=== PATIENT | female | born 1985 | race Caucasian/White ===

== ENCOUNTER 2017-01-31 17:09 | Inpatient (IN) | payer OTHER ==
[~2017-01-31] VITALS: Ht 175.3 cm; Wt 118.2 kg
--- NOTE | 2017-01-31 19:23 | PD ---
HPI Chief Complaint decreased FM Travel History International Travel<30 Days: No Contact w/Intl Traveler<30Days: No Known Affected Area: No History of Present Illness HPI 31-year-old , IUP at 40.5 care complicated by obesity, history of asthma with the last episode 1 year ago Patient presents reporting decreased movement over the past 1-2 days. She reports that the baby has still been moving but it has been less than normal. There were no aggravating or alleviating factors and no attempted treatments. She reports some mild and irregular contractions. She reports that she is feeling the contractions but she did not come because of contractions or pain, just came for the evaluation of movement. She denies any leaking of fluid or vaginal bleeding. Weeks Gestation: 40 Para: 0 : 1 History Past Medical History Narrative Medical Obesity History of asthma with the last episode a year ago Obstetric History Obstetric History Past Surgical History Narrative Surgical Left ankle surgery Family History Narrative Family History Lupus Social History Alcohol Use: No Tobacco Use: No Substance Abuse: No Allergies-Medications (Allergen,Severity, Reaction): Coded Allergies: JEAN CARLOS Inhibitors (Verified Allergy, Unknown, 01/31/17) angioedema Review of Systems Except as stated in HPI: all other systems reviewed are Neg Physical Exam Narrative GENERAL: Well-nourished, well-developed patient. SKIN: Warm and dry. HEAD: Normocephalic and atraumatic. EYES: No scleral icterus. No injection or drainage. ENT: No nasal drainage noted. Mucous membranes pink. Airway patent. NECK: Supple, trachea midline. No JVD. CARDIOVASCULAR: Regular rate and rhythm without murmurs, gallops, or rubs. RESPIRATORY: Breath sounds equal bilaterally. No accessory muscle use. BREASTS: Deferred ABDOMEN/GI: Abdomen soft, non-tender, bowel sounds present, no rebound, no guarding Gravid GENITOURINARY: External Genitalia: intact and normal in appearance. Normal BUS. Physiologic discharge. No cervical or vaginal masses appreciated, grossly normal rugae. SVE 1/75/-3, posterior. Uterine Contractions: Some uterine contractions were noted but patient reports these are mild and irregular FHT's: heart tones are in the 120s with moderate long-term variability, good accelerations, no repetitive decelerations. Category 1 heart rate tracing and reactive NST. EXTREMITIES: No cyanosis or edema. BACK: Nontender without obvious deformity. No CVA tenderness. NEUROLOGICAL: Awake and alert. Motor and sensory grossly within normal limits. Five out of 5 muscle strength in all muscle groups. Normal speech. Musculoskeletal: Grossly normal range of motion, gait, and muscle strength Psychiatric: Grossly normal memory and affect MDM Plan Assessment/plan: 1. IUP at 40.5 2. Decreased movement: Patient had a reactive NST. A Biophysical profile was obtained which showed oligohydramnios with an GISSELLE of 4.6. Schedule Dr. Crowe and will admit patient for induction of labor with oligohydramnios at postterm. Discussed labor induction with patient and patient in agreement to proceed, orders placed on behalf of Dr. Castañeda for Cervidil with oxytocin to start in the morning if appropriate. 3. No evidence of active labor at this time, although patient is having some mild contractions, we'll monitor 4. Obesity 5. History of asthma: No recent attacks 6. GBS - 7. well-being: FHR reassuring and appropriate for gestational age with reactive NST category 1 heart rate tracing, continue monitoring Sarah Weiner MD Jan 31, 2017 19:23
--- NOTE | 2017-01-31 19:24 | PD ---
History of Present Illness History of Present Illness NST report Indications: IUP at 40 weeks 5 days, obesity, decreased movement FHR: heart rate baseline in the 120s with good accelerations and no repetitive decelerations with moderate long-term variability, reactive NST/ category 1 heart rate tracing Final diagnosis: IUP at 40 weeks 5 days, obesity, decreased movement but now feeling good movement, oligohydramnios Follow-up: We'll admit and continue monitoring Sarah Weiner MD Jan 31, 2017 19:24
[2017-01-31] MEDS: LACTATED RINGER'S 1000 ML INJ 1,000 ML IV SCH (20:05)
[2017-01-31] MEDS ORDERED: SODIUM CHLORIDE 0.9% FLUSH 10 ML FLUSH IV FLUSH PRN (20:15)
[2017-01-31] MEDS ORDERED: DINOPROSTONE 10 MG VAG INSERT VAGINAL ONE (20:15)
[2017-01-31] MEDS ORDERED: LACTATED RINGER'S 1000 ML INJ 1,000 ML IV PRN (20:17)
[2017-01-31] MEDS ORDERED: LIDOCAINE HCL 1% 50 ML VIAL INFIL PRN (20:30)
[2017-01-31] MEDS ORDERED: ONDANSETRON HCL 4 MG/2 ML VIAL IV PRN (20:30)
[2017-01-31] MEDS ORDERED: SODIUM CHLORID 0.9% 500 ML INJ 500 ML IV PRN (20:30)
[2017-01-31] MEDS ORDERED: CITRIC ACID-SODIUM CITRATE LIQ 30 ML UDC PO SCH (20:30)
[2017-01-31] MEDS ORDERED: OXYTOCIN 30 UNITS-500ML PREMIX 500 ML IV SCH (20:30)
[2017-01-31] MEDS ORDERED: LIDOCAINE HCL 1% 50 ML VIAL I-DERMAL PRN (20:30)
[2017-01-31] MEDS ORDERED: MINERAL OIL 10 ML VIAL TOPICAL PRN (20:30)
[2017-01-31] MEDS ORDERED: OXYTOCIN 30 UNITS-500ML PREMIX 500 ML IV ONE (20:30)
[2017-01-31] MEDS ORDERED: SODIUM CHLOR 0.9% 1000 ML INJ 1,000 ML IV PRN (20:37)
[2017-01-31] MEDS: SODIUM CHLORIDE 0.9% FLUSH 10 ML FLUSH IV FLUSH SCH (21:00)
[2017-01-31 21:07] LABS: AUTOMATED NEUTROPHIL # 10.2 TH/MM3 (1.8-7.7); BASOPHIL % 0.2 % (0.0-2.0); EOSINOPHIL # 0.2 TH/MM3 (0-0.4); EOSINOPHIL % 1.1 % (0.0-4.0); HEMATOCRIT 39.1 % (35.0-46.0); HEMO FLAGS DIFF FINAL; LYMPH % 21.1 % (9.0-44.0); MEAN CELL VOLUME 90.4 FL (80.0-100.0); MEAN CORPUSCULAR HEMOGLOBIN 29.1 PG (27.0-34.0); MEAN CORPUSCULAR HGB CONC 32.2 % (32.0-36.0); NEUT % 72.6 % (16.0-70.0); PLATELET COUNT 223 TH/MM3 (150-450); RED BLOOD COUNT 4.32 MIL/MM3 (4.00-5.30); RED CELL DISTRIBUTION WIDTH 14.1 % (11.6-17.2); WHITE BLOOD COUNT 14.1 TH/MM3 (4.0-11.0)
[2017-01-31 21:11] LABS: BLOOD, URINE SMALL (NEG); COMMENT (UR) CULT NOT INDICATED; CULTURE IF INDICATED CULT NOT INDICATED; GLUCOSE,URINE NEG (NEG); KETONE, URINE NEG (NEG); NITRITE,URINE NEG (NEG); SQUAMOUS EPITHELIAL CELL URINE <1 /hpf (0-5); URINE COLOR LIGHT-YELLOW (YELLW/STRAW)
[2017-01-31] MEDS ORDERED: fentaNYL 2MCG-BUPIV 0.125% INJ 100 ML ONE (23:29)
[2017-01-31] MEDS ORDERED: ePHEDrine/NS 25 MG/5 ML SYR ONE (23:29)
[2017-01-31] MEDS ORDERED: DO NOT ADMINISTER ANTICOAGULANTS PRN (23:45)
[2017-01-31] MEDS ORDERED: NO SYSTEM NARCOTICS PRN (23:45)
[2017-01-31] MEDS ORDERED: ePHEDrine/NS 25 MG/5 ML SYR IV PRN (23:45)
[2017-01-31] MEDS ORDERED: OXYTOCIN 30 UNITS/NS 500ML PREMIX IV SCH (23:50)
[2017-02-01] MEDS: fentaNYL 2MCG-BUPIV 0.125% 100 ML EPIDURAL SCH ×2 (00:24→05:11)
[2017-02-01] MEDS: LACTATED RINGER'S 1000 ML INJ 1,000 ML IV SCH (02:45)
[2017-02-01] MEDS ORDERED: OXYTOCIN 30 UNITS/NS 500ML PREMIX IV SCH (05:00)
[2017-02-01 08:16] LABS: BLOOD GAS BASE EXCESS -4.3 mmol/L (-2-2); BLOOD GAS O2 HGB SATURATION 12 % (90-100); CORD BLOOD GAS HCO3 24 mmol/L (21-29); CORD BLOOD GAS PCO2 74 mmHG (34-78); CORD BLOOD GAS PH 7.13 (7.14-7.42); CORD BLOOD GAS PO2 15 mmHG (3.0-40.0); DRAW SITE CORD BLOOD; STAT NO
--- NOTE | 2017-02-01 08:27 | HHI.PR ---
Subjective Remarks [facility] Delivery Note Called to room to standby for primary Ob. Upon entry into room, FHR noted to be with repetitive severe variables over the previous approximately 15 minutes of maternal spontaneous expulsive efforts. The patient was making excellent progress with pushing and FHR would return to baseline with SVE C/C/+3 during expulsive efforts. Discussed with patient possible need for vacuum with risks discussed verbally, however, head subsequently delivered atraumatically followed by atraumatic delivery of anterior shoulder and remainder of . The placed on maternal abdomen and stimulated; was crying vigorously by 30 seconds of life with Apgars 8/9. Cord blood was obtained for nursery and placenta delivered spontaneously and appeared to be intact. A second degree vaginal/perineal laceration was noted, rectal examination was negative with no involvement of rectal mucosa or rectal sphincter. The second degree laceration was repaired in the typical fashion with 2-0 chromic with excellent cosmesis and hemostasis. A rectal examination performed after the repair was negative. EBL 250cc. Mother and both doing well. Dr. Crowe arrived and assumed care of patient. Objective Result Diagram: 01/31/17 Sarah Serrano MD Feb 01, 2017 08:27
--- NOTE | 2017-02-01 08:33 | PD.OB.DELI ---
Weeks gestation: 40 Gest age assessed date: Feb 01, 2017 Gest age assessed time: 19:00 Pt started active labor?: Yes Active labor start date: Feb 01, 2017 Active labor start time: 05:30 Medical induction of labor?: No Artificial rupture of membrane: No Anesthesia: Epidural Vaginal Delivery: Normal Presentation: Occiput anterior Nuchal Cord: None Infant: Female, Single Delivery date: Feb 01, 2017 Delivery time: 08:04 One Minute : 8 Five Minute : 9 Weight: 7-0 Placenta: Spontaneous delivery, Intact, 3 vessel cord Laceration: Perineal laceration, 3 deg Repair: Chromic running Estimated blood loss: 350 ml Additional Information pt delivered by hospitalist just prior to my arrival secondary to bradycardia. cord gas 7.13 Eryn Crowe MD Feb 01, 2017 08:33
[2017-02-01] MEDS ORDERED: ALUMINUM/MAGNESIUM/SIMETH 30 ML CUP PO PRN (09:15)
[2017-02-01] MEDS ORDERED: SODIUM CHLORIDE 0.9% FLUSH 10 ML FLUSH IV FLUSH PRN (09:15)
[2017-02-01] MEDS ORDERED: OXYTOCIN 10 UNIT/ML AMP XX PRN (09:15)
[2017-02-01] MEDS ORDERED: WITCH HAZEL 50%/GLYCERIN 12.5% 40 PAD JAR TOPICAL PRN (09:15)
[2017-02-01] MEDS ORDERED: DOCUSATE SODIUM 50 MG/SENNA 8.6 MG TAB PO PRN (09:15)
[2017-02-01] MEDS ORDERED: ONDANSETRON ODT 4 MG TAB PO PRN (09:15)
[2017-02-01] MEDS ORDERED: BENZOCAINE 20% TOPICAL SPRAY 60 ML CAN TOPICAL PRN (09:15)
[2017-02-01] MEDS ORDERED: ACETAMINOPHEN 325 MG TAB PO PRN (09:15)
[2017-02-01] MEDS ORDERED: oxyCODONE/ACETAMINOPHEN 5 MG/325 MG TAB PO PRN ×2 (09:15)
[2017-02-01] MEDS ORDERED: OXYTOCIN 30 UNITS-500ML PREMIX 500 ML IV SCH (11:00)
[2017-02-01] MEDS ORDERED: OXYTOCIN 30 UNITS-500ML PREMIX 500 ML IV ONE (11:00)
[2017-02-01] MEDS: IBUPROFEN 600 MG TAB PO PRN (13:06)
[2017-02-01] MEDS ORDERED: DIPHTH/TETANUS/ACEL PERTUSSIS (BOOSTER) 0.5 ML VIAL/PFS IM ONE (16:00)
[2017-02-01] MEDS ORDERED: MEASLES, MUMPS, RUBELLA VACCINE 0.5 ML VIAL SQ ONE (16:00)
[2017-02-01] MEDS ORDERED: ZOLPIDEM TARTRATE 5 MG TAB PO PRN (21:00)
[2017-02-01] MEDS ORDERED: SODIUM CHLORIDE 0.9% FLUSH 10 ML FLUSH IV FLUSH SCH (21:00)
[2017-02-02] MEDS: IBUPROFEN 600 MG TAB PO PRN ×3 (06:55→20:12)
[2017-02-02] MEDS: SODIUM CHLORIDE 0.9% FLUSH 10 ML FLUSH IV FLUSH SCH ×2 (09:00→21:00)
--- NOTE | 2017-02-02 12:57 | HHI.OB ---
Subjective Post Day: 1 Remarks doing well Objective Objective Remarks GENERAL: Well-nourished, well-developed patient. ABDOMEN/GI: Abdomen soft, non-tender. Fundus: Firm, non-tender at umbilicus. GENITOURINARY: Light to moderate bleeding. EXTREMITIES: No cyanosis or edema, non-tender, without signs of DVT. Medications and IVs Current Medications Medications (Trade) Dose Ordered Sig/Valentina Route Start Time Stop Time Status Last Admin (NS Flush) 2 ml BID IV FLUSH 01/31/17 21:00 (NS Flush) 2 ml UNSCH PRN IV FLUSH 01/31/17 20:15 Lactated Ringer's 1,000 ml @ 125 mls/hr Q8H IV 01/31/17 20:17 02/01/17 02:45 Lactated Ringer's 1,000 ml @ 3,000 mls/hr Q20M PRN IV 01/31/17 20:17 Sodium Chloride 500 ml @ 1,000 mls/hr ONCE PRN IV 01/31/17 20:30 Sodium Chloride 1,000 ml @ 100 mls/hr Q10H PRN IV 01/31/17 20:37 (Xylocaine 1% Inj (50 ml)) 0.1 ml UNSCH X1 PRN I-DERMAL 01/31/17 20:30 02/03/17 20:29 (Bicitra Liq) 30 ml SYSTEMS NAVIGATOR PO 01/31/17 20:30 02/04/17 20:29 (Xylocaine 1% Inj (50 ml)) 10 ml UNSCH X1 PRN INFIL 01/31/17 20:30 02/02/17 20:29 (Muri-Lube Oil) 10 ml UNSCH PRN TOPICAL 01/31/17 20:30 Fentanyl/ Bupivacaine HCl 100 ml @ 0 mls/hr TITRATE EPIDURAL 01/31/17 23:45 02/01/17 05:11 (Tylenol) 650 mg Q4H PRN PO 02/01/17 09:15 (Motrin) 600 mg Q6H PRN PO 02/01/17 09:15 02/02/17 06:55 (Percocet 5-325 Mg) 1 tab Q4H PRN PO 02/01/17 09:15 (Percocet 5-325 Mg) 2 tab Q4H PRN PO 02/01/17 09:15 (Americaine 20% Top Spr) 1 spray Q4H PRN TOPICAL 02/01/17 09:15 02/01/17 13:05 (Tucks Pads) 1 applic QID PRN TOPICAL 02/01/17 09:15 02/01/17 13:05 (Leigha-Colace) 2 tab Q12H PRN PO 02/01/17 09:15 (Ambien) 5 mg HS PRN PO 02/01/17 21:00 (Mag-Al Plus Susp Liq) 15 ml Q8H PRN PO 02/01/17 09:15 (Zofran Odt) 4 mg Q6H PRN PO 02/01/17 09:15 Assessment/Plan Problem List: (1) Spontaneous vaginal delivery ICD Codes: O80 - Encounter for full-term uncomplicated delivery Discharge Planning in [facility] Alvarado MD Feb 02, 2017 12:57
--- NOTE | 2017-02-02 12:58 | HHI.DCPOC ---
Discharge Care Plan Diagnosis: (1) Spontaneous vaginal delivery Report Symptoms to Your Doctor -Temperature above 100.5 degrees -Redness, of incision or excessive or foul smelling drainage -Unusual pain or calf pain -Increased vaginal bleeding -Painful or difficulty urinating -Feelings of extreme sadness or anxiety after 2 weeks Goals to Promote Your Health * To prevent worsening of your condition and complications * To maintain your health at the optimal level Directions to Meet Your Goals Take your medications as prescribed Follow your dietary instruction Follow activity as directed Ensure plenty of rest for recovery Drink fluids for hydration Keep your appointments as scheduled Take your immunizations and boosters as scheduled If your symptoms worsen call your PCP, if no PCP go to Urgent Care Center or Emergency Room Smoking is Dangerous to Your Health. Avoid second hand smoke Call the 24-hour crisis hotline for domestic abuse at Mainor Alvarado MD Feb 02, 2017 12:58
[2017-02-03] MEDS: IBUPROFEN 600 MG TAB PO PRN ×2 (02:07→10:18)
--- NOTE | 2017-02-03 14:55 | HHI.OB ---
Subjective Post Day: 2 Remarks doing well Objective Other Results GENERAL: SKIN: Warm and dry. HEAD: Normocephalic. EYES: No scleral icterus. No injection or drainage. NECK: Supple, trachea midline. No JVD or lymphadenopathy. GASTROINTESTINAL: Abdomen soft, non-tender, nondistended. MUSCULOSKELETAL: No cyanosis, or edema. BACK: Nontender without obvious deformity. No CVA tenderness. Objective Remarks GENERAL: Well-nourished, well-developed patient. ABDOMEN/GI: Abdomen soft, non-tender. Fundus: Firm, non-tender at umbilicus. GENITOURINARY: Light to moderate bleeding. EXTREMITIES: No cyanosis or edema, non-tender, without signs of DVT. Medications and IVs Current Medications Medications (Trade) Dose Ordered Sig/Valentina Route Start Time Stop Time Status Last Admin (NS Flush) 2 ml BID IV FLUSH 01/31/17 21:00 (NS Flush) 2 ml UNSCH PRN IV FLUSH 01/31/17 20:15 Lactated Ringer's 1,000 ml @ 125 mls/hr Q8H IV 01/31/17 20:17 02/01/17 02:45 Lactated Ringer's 1,000 ml @ 3,000 mls/hr Q20M PRN IV 01/31/17 20:17 Sodium Chloride 500 ml @ 1,000 mls/hr ONCE PRN IV 01/31/17 20:30 Sodium Chloride 1,000 ml @ 100 mls/hr Q10H PRN IV 01/31/17 20:37 (Xylocaine 1% Inj (50 ml)) 0.1 ml UNSCH X1 PRN I-DERMAL 01/31/17 20:30 02/03/17 20:29 (Bicitra Liq) 30 ml BARK GRINDER PO 01/31/17 20:30 02/04/17 20:29 (Muri-Lube Oil) 10 ml UNSCH PRN TOPICAL 01/31/17 20:30 Fentanyl/ Bupivacaine HCl 100 ml @ 0 mls/hr TITRATE EPIDURAL 01/31/17 23:45 02/01/17 05:11 (Tylenol) 650 mg Q4H PRN PO 02/01/17 09:15 (Motrin) 600 mg Q6H PRN PO 02/01/17 09:15 02/03/17 10:18 (Percocet 5-325 Mg) 1 tab Q4H PRN PO 02/01/17 09:15 (Percocet 5-325 Mg) 2 tab Q4H PRN PO 02/01/17 09:15 (Americaine 20% Top Spr) 1 spray Q4H PRN TOPICAL 02/01/17 09:15 02/01/17 13:05 (Tucks Pads) 1 applic QID PRN TOPICAL 02/01/17 09:15 02/01/17 13:05 (Leigha-Colace) 2 tab Q12H PRN PO 02/01/17 09:15 (Ambien) 5 mg HS PRN PO 02/01/17 21:00 (Mag-Al Plus Susp Liq) 15 ml Q8H PRN PO 02/01/17 09:15 (Zofran Odt) 4 mg Q6H PRN PO 02/01/17 09:15 Assessment/Plan Problem List: (1) Spontaneous vaginal delivery ICD Codes: O80 - Encounter for full-term uncomplicated delivery Discharge Planning [facility] Mainor Alvarado MD Feb 03, 2017 14:55
[2017-02-03] MEDS ORDERED: OXYC1TAB63 PO (14:58)
--- NOTE | 2017-02-03 15:00 | HHI.DS ---
Admission Date Jan 31, 2017 at 20:11 Discharge Date: Feb 03, 2017 Admitting Diagnosis Diagnosis: (1) Spontaneous vaginal delivery Diagnosis: Principal ICD Codes: O80 - Encounter for full-term uncomplicated delivery Delivery Date: Feb 01, 2017 Vaginal Delivery: Normal Infant: Female, Single Brief History 31-year-old , IUP at 40.5 care complicated by obesity, history of asthma with the last episode 1 year ago Patient presents reporting decreased movement over the past 1-2 days. She reports that the baby has still been moving but it has been less than normal. There were no aggravating or alleviating factors and no attempted treatments. She reports some mild and irregular contractions. She reports that she is feeling the contractions but she did not come because of contractions or pain, just came for the evaluation of movement. She denies any leaking of fluid or vaginal bleeding. Hospital Course doing well. doing well ok for DC home Pt Condition on Discharge: Good Discharge Disposition: Discharge Home Discharge Instructions Diet Instructions: As Tolerated, No Restrictions Activities You Can Perform: Pelvic Rest Follow up Referrals: INSURANCE SALES MANAGER - 2 Weeks @ [facility] with Mainor Alvarado MD New Medications: Oxycodone-Acetaminophen (Oxycodone-Acetaminophen) 5-325 mg Tab 2 TAB PO Q4H PRN for PAIN SCALE 6 TO 10 for 7 Days, #20 TAB 0 Refills Mainor Alvarado MD Feb 03, 2017 15:00
== END 2017-02-03 15:25 | disposition home or self-care (01) | DRG 775 ==
LOC: HOBED 17:09 → H2EA 20:11 → H1EA 02-01 10:58
PROVIDERS: ADMIT Obstetrics & Gynecology; ATTEND Obstetrics & Gynecology
PROC: 00HU33Z Insertion of Infusion Device into Spinal Canal, Percutaneous Approach (ICD-10-PCS; 2017-01-31)
PROC: 3E0R3CZ (ICD-10-PCS; 2017-01-31)
PROC: 10E0XZZ Delivery of Products of Conception, External Approach (ICD-10-PCS; principal; 2017-02-01)
PROC: 0KQM0ZZ Repair Perineum Muscle, Open Approach (ICD-10-PCS; 2017-02-01)
DX: O36.8130 Decreased fetal movements, third trimester, not applicable or unspecified (principal); O41.03X0 Oligohydramnios, third trimester, not applicable or unspecified; E66.9 Obesity, unspecified; Z68.38 Body mass index [BMI] 38.0-38.9, adult; O99.214 Obesity complicating childbirth; O99.52 Diseases of the respiratory system complicating childbirth; J45.909 Unspecified asthma, uncomplicated; O70.1 Second degree perineal laceration during delivery; Z3A.40 40 weeks gestation of pregnancy; Z37.0 Single live birth
CPT/HCPCS: 59025; 76816; 76819; 81001; 82805; 85025; 86900; 86901; 90707; 90715; J2590; J7120